=== PATIENT | female | born 1960 | race Caucasian/White ===

== ENCOUNTER → 2024-05-23 09:48 | Outpatient (REF) | payer OTHER, SELFPAY | LOC: WDC 09:48 | PROVIDERS: ATTENDING PHYSICIAN Advanced Practice Midwife; FAMILY PHYSICIAN Nurse Practitioner Gerontology; REFERRING PHYSICIAN Internal Medicine Hematology & Oncology | DX: N63.31 Unspecified lump in axillary tail of the right breast (principal) | CPT/HCPCS: 76642; 77062; 77066 ==

== ENCOUNTER → 2024-07-12 08:30 | Outpatient (REF) | payer OTHER, SELFPAY | LOC: WDC 08:30 | PROVIDERS: ATTENDING PHYSICIAN Advanced Practice Midwife; FAMILY PHYSICIAN Internal Medicine Hematology & Oncology | DX: R59.0 Localized enlarged lymph nodes (principal) | CPT/HCPCS: 76642 ==

== ENCOUNTER → 2024-10-19 13:56 | Outpatient (REF) | payer OTHER, SELFPAY | LOC: WDC 13:56 | PROVIDERS: ATTENDING PHYSICIAN Advanced Practice Midwife | DX: R92.8 Other abnormal and inconclusive findings on diagnostic imaging of breast (principal) | CPT/HCPCS: 76642 ==